=== PATIENT | female | born 1945 | race Caucasian/White ===

== ENCOUNTER 2016-09-23 21:20 | Emergency (ER) | payer MEDICARE, MEDICAID ==
[~2016-09-23] VITALS: Ht 170.2 cm; Wt 65.5 kg
[2016-09-23] MEDS ORDERED: ASPI1TAB PO (21:32)
[2016-09-23] MEDS ORDERED: KETOROLAC TROMETHAMINE 30 MG/ML VIAL IVP ONE (22:15)
[2016-09-23] MEDS ORDERED: SODIUM CHLORIDE 0.9% 1,000 ML IV ONE (22:15)
[2016-09-23] MEDS ORDERED: ONDANSETRON HCL 4 MG/2 ML VIAL IVP ONE (22:15)
[2016-09-23] MEDS ORDERED: MECLIZINE HCL 25 MG TABLET PO ONE (22:15)
[2016-09-23 22:31] LABS: BASOPHILS % (AUTO) 0.7 % (0.0-2.0); EOSINOPHILS % (AUTO) 5.4 % (1.0-6.0); HEMATOCRIT 39.2 % (36-46); HEMOGLOBIN 12.6 g/dL (12.0-16.0); LYMPHOCYTES # (AUTO) 2.5 K/uL (1.0-4.8); LYMPHOCYTES % (AUTO) 33.2 % (22.0-44.0); MEAN CORPUSCULAR HEMOGLOBIN 29.5 pg (26.0-34.0); MEAN CORPUSCULAR VOLUME 92 fL (80-100); MONOCYTES # (AUTO) 0.7 K/uL (0.1-1.0); NEUTROPHILS # (AUTO) 3.9 K/uL (1.8-7.7); NEUTROPHILS % (AUTO) 51.7 % (40.0-70.0); PLATELET COUNT (AUTO) 179 K/uL (150-450); RED BLOOD CELL COUNT(AUTO) 4.26 MIL/uL (4.00-5.20); RED CELL DISTRIBUTION WIDTH 13.2 % (11.5-14.5); WHITE BLOOD COUNT (AUTO) 7.6 K/uL (4.5-11.0)
[2016-09-23 22:43] LABS: CREATININE 0.92 mg/dL (0.60-1.30); POTASSIUM 3.7 mmol/L (3.5-5.1)
[2016-09-23 22:49] LABS: BILIRUBIN,TOTAL 0.5 mg/dL (0.1-1.0); TOTAL PROTEIN, SERUM 7.1 g/dL (6.4-8.2)
[2016-09-24 00:05] VITALS: BP 122/60
== END 2016-09-24 00:31 | disposition home or self-care (01) ==
LOC: EMS 21:26
DX: G43.909 Migraine, unspecified, not intractable, without status migrainosus (principal)
CPT/HCPCS: 36415; 70450; 80053; 83690; 84484; 85025; 93005; 96361; 96374; 99285; J2405; J7030; J1885

== ENCOUNTER 2017-04-28 00:39 | Emergency (ER) | payer MEDICARE, MEDICAID ==
[~2017-04-28] VITALS: Ht 170.2 cm; Wt 63.6 kg
[~2017-04-28 00:39] MED LIST: ASPI-1191 PO
[2017-04-28] MEDS ORDERED: ALPR0.5T8 PO (00:49)
[2017-04-28 02:08] VITALS: BP 143/66
== END 2017-04-28 02:36 | disposition home or self-care (01) ==
LOC: EMS 00:39
DX: T43.615A Adverse effect of caffeine, initial encounter (principal); F41.9 Anxiety disorder, unspecified; Y92.89 Other specified places as the place of occurrence of the external cause
CPT/HCPCS: 93005; 99283

== ENCOUNTER 2025-01-23 20:12 | Inpatient (IN) | payer MEDICARE, MEDICAID ==
[~2025-01-23] VITALS: Ht 170.2 cm; Wt 64.5 kg
[~2025-01-23 20:12] MED LIST changes: +AMLO-258 PO; -ASPI-1191 PO; +ASPI-1450 PO; +ATOR40TA28 PO; +BUSP5TAB20 PO; +MIRT-89 PO
[2025-01-24] MEDS ORDERED: PETROLATUM,WHITE 28 GM JELLY TP PRN (10:00)
[2025-01-24] MEDS ORDERED: BACITRACIN 28 GM OINTMENT TP PRN (10:00)
[2025-01-24] MEDS ORDERED: LOPERAMIDE HCL 2 MG CAPSULE PO PRN (10:00)
[2025-01-24] MEDS ORDERED: ALBUTEROL SULFATE HFA 90 MCG/PUFF 8 GM INHALER IH PRN (10:00)
[2025-01-24] MEDS ORDERED: BENZOCAINE/MENTHOL [CEPACOL] LOZENGE PO PRN (10:00)
[2025-01-24] MEDS ORDERED: ONDANSETRON 4 MG TABLET PO PRN (10:00)
[2025-01-24 10:31] VITALS: BP 141/61; PULSE 72; RESP 18; TEMP 97.8; O2SAT 98
[2025-01-24] MEDS: ASPIRIN 81 MG DR TABLET PO SCH (10:58)
[2025-01-24 11:40] VITALS: BP 141/61; PULSE 72; RESP 18; TEMP 97.8; O2SAT 98
[2025-01-24 11:46] VITALS: BP 141/61; PULSE 72; RESP 18; TEMP 97.8; O2SAT 98
[2025-01-24 16:09] LABS: APPEARANCE,URINE CLEAR (CLEAR); GLUCOSE, URINE (UA) NEGATIVE (NEGATIVE); LEUKOCYTE ESTERASE ,URINE SMALL (NEGATIVE); NITRATE,URINE NEGATIVE (NEGATIVE); OCCULT BLOOD,URINE NEGATIVE (NEGATIVE); PH,URINE DRUG SCREEN 5.5 (5.0-8.0); SPECIFIC GRAVITIY, URINE 1.017 (1.003-1.030)
[2025-01-24 16:20] LABS: SQUAMOUS EPITHELIAL CELL,UR Few /LPF (None Seen)
[2025-01-24 16:47] LABS: ALCOHOL, URINE DRUG SCREEN NEGATIVE (NEGATIVE); AMPHET/METH SCREEN,URINE NEGATIVE (NEGATIVE); BARBITURATE SCREEN, URINE NEGATIVE (NEGATIVE); CANNABINOID SCREEN,URINE NEGATIVE (NEGATIVE); COCAINE SCREEN,URINE NEGATIVE (NEGATIVE); METHADONE SCREEN, URINE NEGATIVE (NEGATIVE)
[2025-01-24 21:16] VITALS: BP 103/55; PULSE 87; RESP 18; TEMP 98.6; O2SAT 96
[2025-01-24] MEDS: ATORVASTATIN CALCIUM 20 MG TABLET PO SCH (21:42)
[2025-01-25] MEDS ORDERED: INFLUENZA VIRUS VACCINE TVS (6MO+) 2025-26/PF 45 MCG/0.5 ML SYRINGE IM. ONE
[2025-01-25 09:06] VITALS: BP 118/59; PULSE 76; RESP 18; TEMP 97.8; O2SAT 99
[2025-01-25] MEDS: OMEPRAZOLE 20 MG CAPSULE PO SCH (09:10)
[2025-01-25] MEDS: DOCUSATE SODIUM 100 MG CAPSULE PO PRN (09:16)
[2025-01-25 20:00] VITALS: BP 113/58; PULSE 91; RESP 18; TEMP 97.5; O2SAT 99
[2025-01-25] MEDS: MIRTAZAPINE 15 MG TABLET PO SCH (20:44)
[2025-01-25] MEDS: MAGNESIUM HYDROXIDE SUSPENSION 30 ML UDCUP PO PRN (23:42)
[2025-01-26] MEDS: CITALOPRAM HYDROBROMIDE 20 MG TABLET PO SCH (10:26)
[2025-01-26 14:44] VITALS: BP 120/67; PULSE 86; RESP 18; O2SAT 97
[2025-01-26] MEDS: ACETAMINOPHEN 325 MG TABLET PO PRN (14:47)
[2025-01-26 20:08] VITALS: BP 123/60; PULSE 82; RESP 18; TEMP 98.6; O2SAT 97
[2025-01-27 09:12] VITALS: BP 114/66; PULSE 77; RESP 18; TEMP 97.3; O2SAT 96
[2025-01-27 14:50] VITALS: BP 136/69; PULSE 88; RESP 18; O2SAT 97
[2025-01-27 20:23] VITALS: BP 127/61; PULSE 91; RESP 18; TEMP 98.4; O2SAT 98
[2025-01-28 10:22] VITALS: BP 118/76; PULSE 78; RESP 18; TEMP 98.4; O2SAT 95
[2025-01-28 20:17] VITALS: BP 126/59; PULSE 79; RESP 18; TEMP 98.2; O2SAT 97
[2025-01-29 08:28] VITALS: BP 130/58; PULSE 75; RESP 18; TEMP 98.7; O2SAT 97
[2025-01-29 09:28] VITALS: RESP 16
[2025-01-29 13:20] VITALS: BP 136/70; PULSE 102; RESP 18; TEMP 98.8; O2SAT 98
[2025-01-29 20:43] VITALS: BP 117/54; PULSE 81; RESP 18; TEMP 98.4; O2SAT 96
[2025-01-30 08:15] VITALS: BP 117/67; PULSE 84; RESP 18; TEMP 98.2; O2SAT 98
[2025-01-30 20:49] VITALS: BP 124/56; PULSE 83; RESP 19; TEMP 98.1; O2SAT 98
[2025-01-31 09:07] VITALS: BP 130/60; PULSE 90; RESP 17; TEMP 97.7; O2SAT 98
[2025-01-31 21:45] VITALS: BP 136/68; PULSE 80; RESP 18; TEMP 97.9; O2SAT 96
[2025-01-31] MEDS: MELATONIN 5 MG TABLET PO SCH (23:46)
[2025-02-01 05:45] VITALS: BP 120/70; PULSE 82; RESP 17; TEMP 97.1; O2SAT 98
[2025-02-01 06:47] VITALS: RESP 18
[2025-02-01 08:12] VITALS: BP 130/59; PULSE 72; RESP 18; TEMP 97.7; O2SAT 98
[2025-02-01 20:20] VITALS: BP 126/57; PULSE 89; RESP 18; TEMP 97.8; O2SAT 98
[2025-02-02 08:30] VITALS: BP 134/64; PULSE 82; RESP 18; TEMP 97; O2SAT 100
[2025-02-02 21:41] VITALS: BP 130/63; PULSE 74; RESP 18; TEMP 97.9; O2SAT 98
[2025-02-03 09:07] VITALS: BP 134/63; PULSE 89; RESP 17; TEMP 98.5; O2SAT 95
[2025-02-03 22:03] VITALS: BP 121/63; PULSE 74; RESP 18; TEMP 98.8; O2SAT 97
[2025-02-04 09:18] VITALS: BP 125/63; PULSE 80; RESP 18; TEMP 98.3; O2SAT 98
[2025-02-04] MEDS: MAG HYDROX/ALUMINUM HYD/SIMETH ES 30 ML SUSPENSION UDCUP PO PRN (14:15)
[2025-02-04 21:21] VITALS: BP 125/67; PULSE 85; RESP 18; TEMP 97.1; O2SAT 97
[2025-02-05 09:47] VITALS: BP 130/60; PULSE 73; RESP 16; TEMP 97.8; O2SAT 95
[2025-02-05 21:49] VITALS: BP 114/59; PULSE 85; RESP 18; TEMP 97.5; O2SAT 98
[2025-02-06 09:42] VITALS: BP 140/67; PULSE 83; RESP 18; TEMP 98.2; O2SAT 99
[2025-02-06 20:30] VITALS: BP 133/61; PULSE 74; RESP 18; TEMP 98.6; O2SAT 98
[2025-02-07 08:04] LABS: PLATELET COUNT (AUTO) 208 K/uL (150-450); RED BLOOD CELL COUNT(AUTO) 4.40 MIL/uL (4.00-5.20); RED CELL DISTRIBUTION WIDTH 13.3 % (11.5-14.5); WHITE BLOOD COUNT (AUTO) 6.5 K/uL (4.5-11.0)
[2025-02-07 08:30] VITALS: BP 122/61; PULSE 85; RESP 17; TEMP 98.3; O2SAT 99
[2025-02-07 08:40] LABS: ASPARTATE AMINOTRANSFERASE 20 U/L (15-37); CALCIUM, TOTAL 8.7 mg/dL (8.8-10.5); CHOL/HDL RATIO 2.1 (3.9-5.7); CREATININE 0.68 mg/dL (0.60-1.30); GLOMERULAR FILTR. RATE CALC > 60 mL/min (>60); GLUCOSE,RANDOM 112 mg/dL (70-110); LDL CHOL (CALC.) 51 mg/dL (0-130); PHOSPHORUS 3.5 mg/dL (2.5-4.9); SODIUM SERUM 143 mmol/L (136-145); TOTAL PROTEIN, SERUM 6.5 g/dL (6.4-8.2); UREA NITROGEN, BLOOD 12 mg/dL (7-18)
[2025-02-07 20:57] VITALS: BP 118/65; PULSE 85; RESP 18; TEMP 98.1; O2SAT 98
[2025-02-07 21:49] LABS: PLATELET COUNT (AUTO) 209 K/uL (150-450); RED BLOOD CELL COUNT(AUTO) 4.42 MIL/uL (4.00-5.20); RED CELL DISTRIBUTION WIDTH 13.4 % (11.5-14.5); WHITE BLOOD COUNT (AUTO) 7.1 K/uL (4.5-11.0)
[2025-02-07 21:57] LABS: CALCIUM, TOTAL 8.6 mg/dL (8.8-10.5); CREATININE 0.67 mg/dL (0.60-1.30); GLOMERULAR FILTR. RATE CALC > 60 mL/min (>60); GLUCOSE,RANDOM 153 mg/dL (70-110); SODIUM SERUM 138 mmol/L (136-145); UREA NITROGEN, BLOOD 13 mg/dL (7-18)
[2025-02-07 22:01] LABS: ASPARTATE AMINOTRANSFERASE 22 U/L (15-37); TOTAL PROTEIN, SERUM 6.5 g/dL (6.4-8.2)
[2025-02-08 09:20] VITALS: BP 135/62; PULSE 88; RESP 18; TEMP 98.2; O2SAT 95
[2025-02-08 21:12] VITALS: BP 129/67; PULSE 91; RESP 18; TEMP 98.4; O2SAT 97
[2025-02-09 09:51] VITALS: BP 125/55; PULSE 78; RESP 18; TEMP 98.1; O2SAT 98
[2025-02-09 20:30] VITALS: BP 104/71; PULSE 90; RESP 19; TEMP 98; O2SAT 98
[2025-02-10 09:04] VITALS: BP 141/77; PULSE 66; RESP 18; TEMP 97.7; O2SAT 98
[2025-02-10 22:02] VITALS: BP 129/61; PULSE 90; RESP 18; TEMP 97.6; O2SAT 98
[2025-02-11 01:50] VITALS: BP 131/65; PULSE 88; RESP 18; TEMP 98.1; O2SAT 99
[2025-02-11] MEDS: IBUPROFEN 600 MG TABLET PO PRN (01:54)
[2025-02-11 10:43] VITALS: BP 143/68; PULSE 75; RESP 17; TEMP 97.9; O2SAT 100
[2025-02-11] MEDS: MELATONIN 5 MG TABLET PO SCH (20:30)
[2025-02-11 20:55] VITALS: BP 108/71; PULSE 84; RESP 16; TEMP 98.5; O2SAT 97
[2025-02-12 08:09] VITALS: BP 127/63; PULSE 85; RESP 18; TEMP 97.8; O2SAT 100
[2025-02-12] MEDS ORDERED: OMEP-148 PO (17:19)
[2025-02-12] MEDS ORDERED: CITA-144 PO (17:20)
[2025-02-12] MEDS ORDERED: MELA5TAB40 PO (17:21)
[2025-02-12 20:22] VITALS: BP 107/53; PULSE 80; RESP 16; TEMP 97.5; O2SAT 98
== END 2025-02-13 14:20 | disposition home or self-care (01) | DRG 881 ==
LOC: 3EX 01-24 09:03 → 3EI 01-31 10:00
PROVIDERS: ADMIT Psychiatry & Neurology Psychiatry; ATTEND Psychiatry & Neurology Psychiatry
DX: F32.9 Major depressive disorder, single episode, unspecified (principal); F03.94 Unspecified dementia, unspecified severity, with anxiety; F03.93 Unspecified dementia, unspecified severity, with mood disturbance; E78.5 Hyperlipidemia, unspecified; I10 Essential (primary) hypertension; M54.2 Cervicalgia; R26.89 Other abnormalities of gait and mobility; G43.909 Migraine, unspecified, not intractable, without status migrainosus; G47.00 Insomnia, unspecified; K59.00 Constipation, unspecified; Z79.899 Other long term (current) drug therapy; M19.90 Unspecified osteoarthritis, unspecified site
CPT/HCPCS: 72040; 74019; 76700; 80053; 80061; 80307; 81001; 83036; 83735; 84100; 84443; 85025; 87081; 87086; 97110; 97116; 97162; 97165; 97530; 97535; G0378